=== PATIENT | male | born 1940 | race Caucasian/White ===

== ENCOUNTER → 2023-02-19 | Outpatient (CLI) | payer MEDICARE, BC | END | disposition home or self-care (01) | LOC: LABPAT 11:11 | PROVIDERS: ATTEND Orthopaedic Surgery | DX: Z01.812 Encounter for preprocedural laboratory examination (principal); M43.16 Spondylolisthesis, lumbar region; M47.817 Spondylosis without myelopathy or radiculopathy, lumbosacral region; Z22.322 Carrier or suspected carrier of Methicillin resistant Staphylococcus aureus | CPT/HCPCS: 36415; 86850; 86900; 86901; 87070 ==

== ENCOUNTER 2023-02-25 07:48 | Inpatient (IN) | payer MEDICARE, BC ==
[2023-02-20 14:51] VITALS: BMI 31.0
--- NOTE | 2023-02-25 06:56 | P.HPOR ---
History of Present Illness H&P Date: 02/19/23 .D:Date: 02/19/23 : 02:10pm .T:Title: *[facility]... COPY... Date of :[birth year] R14 Allergies: Age: 82 year Height: 6' Weight: 225 lbs BP:/ BMI: 30.52 kg/m2 Occupation: Retired VAS: 6 CHIEF COMPLAINT: Lumbar pain DOI: None DOS: None Duration of current treatment regiment:N/A HISTORY : Xrays New xrays taken in office Trauma or injury No Work-Related No Pain description Dull, aching Location Medial Activity Modification Yes Hand Dominance Right TREATMENTS COMPLETED: 6 weeks of PT completed? Month and Year of last PT date? No Physician directed home exercise completed? No Medications Yes; List: Celebrex, Pregabalin Alternative interventions Chiropractic: No Massage therapy: No R.I.C.E: yes Brace: No Injections Yes How many? 2 Did they help? No RFA: No SUBJECTIVE: Mr. Gray returns to the office for a pre-operative appointment preceding his L4-S1 MIS TLIF, right. Patient reports an aching lumbar pain at rest that becomes sharp with standing or walking that is chronic in nature. The patient denies experiencing any injury or trauma to indicate an exact onset of their symptoms. The pain persists around the medial aspect of the low. He denies any radicular symptoms. Mr. Gray's symptoms are exacerbated with standing and walking, and due to this they note that it is increasingly difficult to complete many of their daily tasks. The patient is having mild sleep disturbances as well due to their ongoing pain and associated symptoms. Regarding treatments, the patient has previously trialed epidural steroid injections and medication management with some relief. Patient denies trialing any other modalities at this time. For their symptoms, the patient has been taking Celebrex and Pregabalin. Otherwise the patient denies any f/c/sob/cp, no incision concerns, no bladder or bowel retention/incontinence, no perineal numbness/tingling, and ambulates independently. HPI: Mr. Gray returns to the office on 12/20/22 for a re-check on their low back pain. Patient continues to report a constant ache-like pain throughout the low back that is chronic in nature. The patient denies experiencing any injury or trauma to indicate an exact onset of their symptoms. The pain persists around the medial aspect of the low back with pain radiating into the right lower extremity. Mr. Gray's symptoms are exacerbated with standing and walking, and due to this they note that it is increasingly difficult to complete many of their daily tasks. The patient is having mild sleep disturbances as well due to their ongoing pain and associated symptoms. Regarding treatments, the patient has previously trialed epidural steroid injections and medication management with some relief. Patient denies trialing any other modalities at this time. For their symptoms, the patient has been taking Celebrex and Aspirin. Otherwise the patient denies any f/c/sob/cp, no incision concerns, no bladder or bowel retention/incontinence, no perineal numbness/tingling, and ambulates independently. Mr. Gray presents on 09/11/22 via phone call regarding his cervical spine MRI as well as his lumbar spine. Currently her cervical spine MRI is still uploaded into our system and there are no images available only the report is available. Upon talking with the patient he states his low back is bothering him more anyways. He complains of pain in his leg as well as low back he cannot stand set or do any activities for very long time before needing to rest. He is unable to walk distances due to the pain. Is unable stand for long periods of time due to the pain. He has tried injections in the past is done physical therapy he is at home exercises and [id number]-[id number] medications as well as prescription medications most recently Celebrex which is only helping minimally. His previous conservative management has failed and continues to have symptomatic pain. He denies any fevers chills shortness of breath or chest pain he denies any perineal numbness or tingling Mr. Gray returns to the office on 09/06/22 for a re-check on their low back pain and to review recent CT scan results of the lumbar spine. Patient states that he continues to experience a constant ache-like pain throughout the low back that is chronic in nature. The patient denies experiencing any injury or trauma to indicate an exact onset of their symptoms. The pain persists around the medial aspect of the low back with no radiating into the lower extremities. Mr. Pathaks symptoms are exacerbated with standing and walking, and due to this they note that it is increasingly difficult to complete many of their daily tasks. The patient is having mild sleep disturbances as well due to their ongoing pain and associated symptoms. Regarding treatments, the patient has previously trialed epidural steroid injections and medication management with some relief. Patient denies trialing any other modalities at this time. For their symptoms, the patient has been taking Celebrex and Pregabalin. The patient states that his pain mildly improved after taking Celebrex. Otherwise the patient denies any f/c/sob/cp, no incision concerns, no bladder or bowel retention/incontinence, no perineal numbness/tingling, and ambulates independently. Mr. Gray presents to the office on 08/09/22 for an evaluation of their lumbar pain. Patient reports a constant aching lumbar pain ongoing for 2-3 years with no known injury or trauma to indicate an exact onset of their symptoms. They state the pain is central over their lumbar and that it does not radiate to any other places or extremities. Although they do state that they have diabetic neuropathy in their legs. The patient reports they have had 2 WALE around 2020 which gave no help. Overall the patient has seen a progressive increase in symptoms since their onset. Mr. Gray symptoms are exacerbated with standing and walking, due to this they notes that it is increasingly difficult for Mr. Gray to complete many of their daily tasks. Patient is having mild sleep disturbances as well due to their ongoing pain and associated symptoms. Regard ing treatments, the patient has previously trialed WALE. Patient denies trialing any other modalities at this time. For their symptoms, the patient has been taking Aspirin and Pregabalin. Otherwise the patient denies any f/c/sob/cp, no incision concerns, no bladder or bowel retention/incontinence, no perineal numbness/tingling, and ambulates independently. The patients' past social, medical, family, surgical history, as well as review of systems, have been reviewed. Please refer to the Neurosurgery History and Physical form that has been scanned in to our electronic medical record system. 14 points review of systems completed and as stated in HPI, all other systems reviewed are negative. Social History: [id number]: never a smoker P3 Alcohol: none P3 Family History: Reviewed, see appropriate section of the chart for details. Past Medical History: Reviewed, see appropriate section of the chart for details. Current Medications: Rx: aspirin 81 mg chewable tablet Ref: 0 Rx: CeleBREX 200 mg capsule Ref: 0 Rx: cholecalciferol (vitamin D3) Ref: 0 Rx: DOMPERIDONE (MOTILIUM) , Ref: 0 Rx: finasteride 5 mg tablet Ref: 0 Rx: Fish OiL Ref: 0 Rx: Janumet 50 mg-1,000 mg tablet Ref: 0 Rx: Jardiance 25 mg tablet Ref: 0 Rx: lisinopriL 5 mg tablet Ref: 0 Rx: magnesium 400 mg (as magnesium oxide) tablet Ref: 0 Rx: metoprolol tartrate 25 mg tablet Ref: 0 Rx: metoprolol tartrate 25 mg tablet Ref: 0 Rx: omeprazole 20 mg capsule,delayed release Ref: 0 Rx: pregabalin 150 mg capsule Ref: 0 Rx: rosuvastatin 10 mg tablet Ref: 0 Rx: tamsulosin 0.4 mg capsule Ref: 0 Rx: Trulicity 1.5 mg/0.5 mL subcutaneous pen injector Ref: 0 PHYSICALEXAMINATION: General: Awake, alert, appropriate for age, in no acute distress. HEENT: No unusual neck masses around region of lateral neck triangle, thyroid, supraclavicular groove Extremities: Skin warm and dry without acute lesions, coloration, temperature, skin intact, no tenderness or erythema Integument: Hairy patches: ABSENT Dorsal skin dimples: ABSENT Cafe au lait spots: ABSENT Surgical incisions: None Palpation: Please see Pain drawing on Intake sheet for further detail. Midline spinal tenderness: No E6 Cervical Tenderness: No E6 Paralumbar tenderness: Yes E6 Parathoracic tenderness: No E6 Buttocks tenderness: No E6 Sacroiliac Tenderness:No Laterality: N/A POSTURAL and MUSCULO-SKELETAL EVALUATION: Coronal Balance: NEUTRAL Recumbent testing: Patient is able to lay flat on back Sagittal Balance: NEUTRAL Shoulder Profile: LEVEL Pelvic Girdle: LEVEL Neck ROM: RESTRICTED Lumbar ROM: RESTRICTED Shoulder ROM: Symmetrical Hip ROM: Symmetrical Knee ROM: Symmetrical Hands: Normal appearance, symmetrical Feet: Normal appearance, Symmetrical VASCULAR STATUS : LEFT RIGHT Wrist Pulses INTACT INTACT Pedal Pulses (Dors. pedis & post.tibialis) INTACT INTACT Color NORMAL NORMAL Edema Absent Absent NEUROLOGIC EXAMINATION: Mental Status:Awake and alert, fully oriented, with normal attention, concentration and memory, and fluent, appropriate speech. Cranial Nerves: I: Olfactory not tested. II: Visual acuity normal, no visual field deficit noted with confrontation. III,IV: Normal pupillary reflexes & intact extraocular movements without nystagmus. V,: Intact symmetrical facial sensation. VII: Intact symmetrical facial motor movement VIII: Hearing intact. IX,X: Intact gag, swallow, & normal voice. XI: Sternocleidomastoid, trapezius function intact. XII: Tongue midline with normal movements. L'hermitte's Sign: Negative / absent Spurling'Sign: Absent bilaterally. Cubital percussion test: Absent bilaterally. Pitts-Tinel sign - Carpal region: Absent bilaterally. Straight Leg Raising: Absent bilaterally. Crossed straight leg raise: negative MOTOR EXAM (0-5/5, N/T Muscle appearance:Left Calf Atrophy UPPER EXTREMITY RIGHT LEFT Shoulder Abduction 5/5 5/5 Biceps 5/5 5/5 Triceps 5/5 5/5 Wrist Extension 5/5 5/5 Hand Intrinsic 5/5 5/5 Electrical Calibrator 5/5 5/5 Hand and finger dexterity intact bilaterally? yes Disdiadochokinesis examination negative bilaterally? yes LOWER EXTREMITY RIGHT LEFT Hip Flexion 4/5 4/5 Knee Extension 4/5 4/5 Knee Flexion 4/5 4/5 Dorsiflexion 4/5 4/5 Plantarflexion 4/5 4/5 EHL 4/5 4/5 FHL 4/5 4/5 Toe heel walk / heel-toe walk intact while maintaining satisfactory balance? yes Squatting/straightening w/o assistance to a min of 60 degree knee flexion? yes Single leg stance: intact REFLEXES(0-4/2, NT)Upper ExtremityLower Extremity Right 2 2 Left 2 2 Pathological Reflexes RIGHT LEFT Pitts's Absent Absent Clonus Absent Absent Babinski Absent Absent Sensory system (0-4, N/T) Test type RU GEORGIE RL LL Joint-Position 2 2 2 2 Vibration 2 2 2 2 Pain & LT sense 2 2 2 2 Dermatomal Deficit: None None L5-S1 None Gait and Functional Evaluation: Ambulatory aids:Independent Romberg's test:Intact bilaterally Steady Gait RADIOGRAPHIC STUDIES: Xray Lumbar spine, multiview, Flexion/Extension with AP pelvis: spondylosis with spondylolisthesis noted. L5-S1 shows grade 1 spondylolisthesis which is mobile on flexion-extension films. There is reasonable disc height but increasing disc collapse at this level compared the other levels. L4-L5 shows some spondylosis as well. No acute fracture or dislocations otherwise noted. AP pelviscongruent level pelvis no fracture CT scan of the lumbar spine without contrast performed at [facility] on 08/28/2022: Images reviewed. There is grade 1 spondylolisthesis again of L5-S1 which is semi-reduced on the supine film. There appears to be part elongation and likely pars defect although it has filled in with sclerotic bone over time. This elongation is caused insufficiency of the L5-S1 facet joints. There is again sclerosis and nasal regions. Disc height is somewhat maintained although there is some vacuum phenomenon within the disc along with far lateral disc herniation which is noted. Similar findings of MRI. mri LUMBAR SPINE FROM OUTSIDE FACILITY DONE ON 05/23/2022:images reviewed. This demonstrates again grade 1 spondylolisthesis L5-S1 with disc bulging and large far lateral disc herniation L5-S1. There is likely pars defects here although there is no edema within the pars interarticularis. There is edema within the facet joints L5-S1 which are elongated and likely insufficient due to the slip. There is disc height loss at this level and disc dehydration. No acute fracture or other dislocation is noted. L4 5 shows mild spondylosis as well with ligamental hypertrophy. There is no high-grade central stenosis over there is bilateral foraminal stenosis at both levels. This is moderate. No acute fractures noted. IMPRESSION: It was my pleasure to have seen and examined Bebeto. I reviewed the patient's clinical syndrome, physical findings, and imaging studies during the appointment today. It is my impression that the patient has a diagnosis of. 1. L5-S1 grade 1 spondylolisthesis, unstable 2.L4-S1 spondylosis 3. Right lower extremity weakness and radiculopathy 4. Low back pain I outlined the natural course history without intervention and various interventional options. PLAN: Based on my findings I suggest the following course of action: - I discussed treatment options with the patient, including operative and non- operative options, and they have elected to proceed with the following surgical procedure: lumbar L4-S1 MIS Transforaminal Lumbar Interbody Fusion The indications, risks, benefits, and alternatives to surgery were discussed with the patient at length. Specifically (but not limited to) the risks of infection, stiffness, recurrence of symptoms, need for revision surgery, local numbness, neurovascular injury, and blood clots were discussed. The patient's questions were answered.The patient would like to consider surgical options and will call the office if /when they decide to proceed. -Patient referred to Dr. Meza for pulmonology clearance -Ambulate daily -Take medications as directed -Ice and rest for pain and swelling control. Spine Surgery Risk Review Mr. Gray is presenting for evaluation of low back pain. It was my pleasure to have seen and examined Mr. Gray. In our visit today we have had a chance to go over subjective complaints, physical examination findings and treatments including the natural course history without intervention and various interventional options. The patients imaging demonstrates: Xray Lumbar spine, multiview, Flexion/Extension with AP pelvis: spondylosis with spondylolisthesis noted. L5-S1 shows grade 1 spondylolisthesis which is mobile on flexion-extension films. There is reasonable disc height but increasing disc collapse at this level compared the other levels. L4-L5 shows some spondylosis as well. No acute fracture or dislocations otherwise noted. AP pelviscongruent level pelvis no fracture CT scan of the lumbar spine without contrast performed at [facility] on 08/28/2022: Images reviewed. There is grade 1 spondylolisthesis again of L5-S1 which is semi-reduced on the supine film. There appears to be part elongation and likely pars defect although it has filled in with sclerotic bone over time. This elongation is caused insufficiency of the L5-S1 facet joints. There is again sclerosis and nasal regions. Disc height is somewhat maintained although there is some vacuum phenomenon within the disc along with far lateral disc herniation which is noted. Similar findings of MRI. mri LUMBAR SPINE FROM OUTSIDE FACILITY DONE ON 05/23/2022:images reviewed. This demonstrates again grade 1 spondylolisthesis L5-S1 with disc bulging and large far lateral disc herniation L5-S1. There is likely pars defects here although there is no edema within the pars interarticularis. There is edema within the facet joints L5-S1 which are elongated and likely insufficient due to the slip. There is disc height loss at this level and disc dehydration. No acute fracture or other dislocation is noted. L4 5 shows mild spondylosis as well with ligamental hypertrophy. There is no high-grade central stenosis over there is bilateral foraminal stenosis at both levels. This is moderate. No acute fractures noted. On physical exam, Mr. Gray demonstrates: Patient continues to report a constant ache-like pain throughout the low back that is chronic in nature. The patient denies experiencing any injury or trauma to indicate an exact onset of their symptoms. The pain persists around the medial aspect of the low back with pain radiating into the right lower extremity. Mr. Gray's symptoms are exacerbated with standing and walking, and due to this they note that it is increasingly difficult to complete many of their daily tasks. The patient is having mild sleep disturbances as well due to their ongoing pain and associated symptoms. I have explained to the patient that as their condition progresses it will cause further neurological deficits and eventual paralysis. Based on the patients imaging, physical exam, and the rapid progression and disabling nature of their symptoms, at this time I recommend surgery in the form of a: lumbar L4-S1 MIS Transforaminal Lumbar Interbody Fusion I discussed the risk and benefits of this procedure at length with Mr. Gray. The patient agreed to considered pursuing the procedure abovementioned. Prior to surgery, she should follow up with her PCP (Cardio, ID, IM etc) for clearance. Questions were invited and answered, and the patient wishes to proceed as outlined below. Currently, I am recommendin.lumbar L4-S1 MIS Transforaminal Lumbar Interbody Fusion 2.Follow up with PCP for surgical clearance 3.Review of surgical risks and benefits as well as an educational packet on the proposed surgical procedure. Risks: All surgical procedures come with inherent risks, including those related to positioning, anesthesia, intraoperative findings, and postoperative complications. It is important to understand that surgery does not come with any guarantee of a successful outcome as complications and adverse events are always possible. The patient was given a handout in office today discussing the surgical procedure and risks associated with the intervention, both of which were discussed with the patient. These risks include but are not limited to the following: * Experiencing same, different or even worse symptoms in back, neck, arms, or legs compared to before surgery. Requiring further surgery or other forms of treatment presently or at some time in the future at same or other levels of the intended spine surgery. On an extreme but fortunately relatively rare basis severe complication such as blindness, stroke, heart attack, temporary and/or permanent nerve injury, paralysis, coma, or may occur, sometimes without known explanation. Surgical complications may include but are not limited to risk of infe ction, fluid accumulation in the surgical dissection site, including a seroma or hematoma, that requires additional surgery, wound drainage, bleeding, new numbness or weakness, vision changes/loss, spinal fluid leakage, non-healing and/or infected incision, headaches, difficulty or inability to swallow, hoarseness, hemopneumothorax, pneumothorax, impotence, retrograde ejaculation, vaginal dryness; injury to nerves, spinal cord, blood vessels, lymphatics or other vital organs (i.e., bowel injury, injury to the great vessels); heterotopic bone formation; complications related to the hardware such as screws, rods, cages including misplaced hardware, device failure, instrumentation at the wrong spine level, hardware fracture/breakage, or hardware loosening; vertebral failure of the spinal column above or below the newly placed hardware; retained surgical instrumentations or devices and the need for further surgery. * Medical risks of the planned spine surgery include but are not limited to generalized Infections to the whole body or local areas outside of the surgical site (sepsis), heart attack, bleeding, anaphylaxis, meningitis, seizure, epilepsy, hearing loss, burn soria, laceration of the head or other areas of the body, bruising, hypersensitivity of the skin, bladder over distension; allergic reaction; shoulder injury related to positioning; fat, blood and air clots to other areas of the body like heart, lungs, brain; failure of internal organs such as lungs, kidneys, liver and excessive bleeding. If blood transfusions are necessary, note that transfusions may caus e intolerance reactions such as anaphylaxis or other complex reactions. Despite best efforts, the results of spine surgery might not heal in terms of bone, soft tissues such as skin, fascia, ligaments, and joints. Additionally, in order to achieve best possible results, spine surgery may be carried out beyond the initially planned levels and involve decompression, fusion including insertion of hardware at levels other than the original intended area of surgical interest change some portions of the procedure in order to ensure the best possible outcomes. With spine surgery and spinal fusion, there are different off label uses of instrumentation (devices, implants and hardware) as well as biological substances (bone morphogenic proteins, demineralized bone matrix) as well as using extra bone from allograft sources (i.e. cadaver bone) or autograft (iliac crest bone, ribs, or the spine itself). The patient has been given information about these practices and their inherent risks and benefits. [facility] is an educational center that serves as a training facility for neurosurgical and orthopedic REHABILITATION ATTENDANT and Nursing students. Physician assistants are medically trained surgical providers who function in the outpatient, inpatient, and operating room setting under the direct supervision of the attending surgeon. [facility] has multiple operating rooms with single and overlapping rooms running daily. They currently function under the required guidelines as produced by the [facility] [employer] Committee with regards to the overlapping rooms and will continue to comply with changes to this policy as they occur. The requirements include and are complied with as follows: (1) the critical portions of the overlapping rooms will not occur at the same time, (2) the attending physician will be physically present during the critical portions of the procedure and immediately available during the entire case, and (3) a back-up attending is designated should the primary attending not be immediately available. The patient has had a chance to review all the listed information, has been given print outs detailing this information, and has had all his/her questions answered to their satisfaction. It was my pleasure to have seen and examined Mr. Gray. In our visit today we have had a chance to go over my understanding of our patient's current condition, the natural course history without intervention and various interventional options. Questions were invited and answered, and the patient wishes to proceed as outlined above. I have seen and examined the patient for 25 minutes and we have spent more than 50% of the time in repeat and detailed counseling about the patient's condition, its natural course history with out and as much as can be predicted with surgery and re-review of various surgical treatment options. In conclusion, Mr. Gray requested we proceed with the above suggested surgery and are willing to accept risks and limitations of the suggested surgery as nature of the disease process and our best attempts at treatment for the condition. Thank you again for allowing us to be part of your patient's care. Please don't hesitate to contact me if you have any further questions. Signed and authenticated by: stacey Summers DO [facility] Complex and Minimally Invasive Spine Surgery [address] [facility], [address] [address] Follow- up: DEL Post procedure 1month 6wks 3 months 6 months 1 year Patient Education: (Informational booklet, instructions, etc) given at today's appointment: DEL Yes .ED:Patient Education: Y Medications Reviewed: YES In our visit today Mr. Gray and I have had a chance to go over my understanding of the patient's current condition, the natural course history without intervention and various interventional options. Questions were invited and answered, and the patient wishes to proceed as outlined above. I will be sure to keep you updated afterMrFrancesca Gray returns here for further follow-up. Thank you again for your referral. Please do not hesitate to contact me if you have any further questions. Signed and authenticated by: ADALGISA Summers DO [facility] [address] [address] This message is confidential, intended only for the named recipient(s) and may contain information that is privileged or exempt from disclosure under applicable law. If you are not the intended recipient(s), you are notified that the dissemination, distribution or copying of this information is strictly prohibited. If you received this message in error, please notify the sender then delete this message. Patient verbalizes understanding of the information discussed. The above note was initiated by Erwin Mays, physician recording assistant plant controller for Dr. Keven Summers. This note has been reviewed by Dr. Summers, who has made his personal changes and impressions for this document. CC: Bob Auguste M.D. Past Medical History Past Medical History: Diabetes Mellitus, GERD/Reflux, Hearing Disorder / Deafness, Hyperlipidemia, Hypertension, Neurologic Disorder, Osteoarthritis (OA), Prostate Disorder, Sleep Apnea/CPAP/BIPAP Additional Past Medical History / Comment(s): CPAP use. "Low platelets, usuallly runs from 129-149, has been like this for years, has been checked out throughly and there's nothing to be concerned about". Neuropathy. Enlarged prostate. Bilateral hearing aid use, can hear out of right ear best. History of Any Multi-Drug Resistant Organisms: None Reported Past Surgical History: Coronary Bypass/CABG Additional Past Surgical History / Comment(s): CABG 5 vessel 1992 or 1993, anal fissure repair. Past Anesthesia/Blood Transfusion Reactions: No Reported Reaction Past Psychological History: No Psychological Hx Reported Smoking Status: Former smoker Past Alcohol Use History: None Reported Additional Past Alcohol Use History / Comment(s): Quit smoking in 2002. Past Drug Use History: None Reported - Past Family History Father Family Medical History: Cancer Mother Family Medical History: Cancer Medications and Allergies Home Medications Medication Instructions Recorded Confirmed Type Aspirin [Adult Low Dose Aspirin EC] 81 mg PO W/SUPPER 02/20/23 02/20/23 History Celecoxib 200 mg PO DIRECTED 02/20/23 02/20/23 History Domperidone 10 mg PO TID 02/20/23 02/20/23 History Empagliflozin [Jardiance] 25 mg PO QAM 02/20/23 02/20/23 History Finasteride [Proscar] 5 mg PO HS 02/20/23 02/20/23 History Loratadine 10 mg PO HS 02/20/23 02/20/23 History Magnesium Oxide(Unknown Dose) 1 tab PO W/SUPPER 02/20/23 02/20/23 History Metoprolol Tartrate 25 mg PO BID 02/20/23 02/20/23 History Montelukast [Singulair] 10 mg PO HS 02/20/23 02/20/23 History Ventura-3/Dha/Epa/Fish Oil [Fish Oil 1 each PO BID 02/20/23 02/20/23 History 1,000 mg Softgel] Omeprazole [PriLOSEC] 20 mg PO HS 02/20/23 02/20/23 History Pregabalin 150 mg PO BID 02/20/23 02/20/23 History Rosuvastatin [Crestor] 10 mg PO HS 02/20/23 02/20/23 History Semaglutide [Ozempic] 0.25 mg SQ MERCEDES 02/20/23 02/20/23 History Tamsulosin [Flomax] 0.4 mg PO QAM 02/20/23 02/20/23 History Vitamin B-12 (Unknown Dose) 1 tab PO DAILY 02/20/23 02/20/23 History Vitamin D (Unknown Dose) 1 tab PO BID 02/20/23 02/20/23 History lisinopriL [Zestril] 5 mg PO W/SUPPER 02/20/23 02/20/23 History sitaGLIPtin PHOS/metFORMIN HCL 1 each PO W/SUPPER 02/20/23 02/20/23 History [Janumet 50-1,000 mg Tablet] Allergies Allergy/AdvReac Type Severity Reaction Status Date / Time No Known Allergies Allergy Verified 02/20/23 14:11 Physical Examination Osteopathic Statement: *. No significant issues noted on an osteopathic structural exam other than those noted in the History and Physical/Consult.
[~2023-02-25 07:48] MED LIST: ACETAMINOPHEN TAB 500 MG TAB PO PRN; DEXAMETHASONE SOD PHOSPHATE 4 MG/ML 1 ML VIAL IV ONE; GABAPENTIN 300 MG CAP PO PRN; LIDOCAINE 1% (10MG/ML) FOR IV START INTRADERMA PRN; MIDAZOLAM 2 MG/2 ML VIAL IV PRN; ONDANSETRON 4 MG/2 ML VIAL IVP ONE; ONDANSETRON 4 MG/2 ML VIAL IVP PRN; TRANEXAMIC 1,000 MG/100ML-NACL 1,000 MG in SALINE 1 100ML.BAG IVPB PRN
[2023-02-25 08:41] LABS: Glucose,Whole Blood 138 mg/dL (70-110)
[2023-02-25] MEDS: LACTATED RINGERS 1,000 ML IV SCH (08:41)
[2023-02-25 08:52] LABS: Basophils % (A) 0 %; Eosinophils # (A) 0.2 k/uL (0-0.7); Eosinophils % (A) 3 %; HCT 45.8 % (39.0-53.0); HGB 14.5 gm/dL (13.0-17.5); Lymphocytes # (A) 2.3 k/uL (1.0-4.8); Lymphocytes % (A) 30 %; MCH 28.1 pg (25.0-35.0); MCHC 31.7 g/dL (31.0-37.0); MCV 88.7 fL (80.0-100.0); Monocytes # (A) 0.3 k/uL (0-1.0); Monocytes % (A) 4 %; Neutrophils # (A) 4.6 k/uL (1.3-7.7); Neutrophils % (A) 61 %; Platelet Count 140 k/uL (150-450); RBC 5.17 m/uL (4.30-5.90); RDW 13.5 % (11.5-15.5); WBC 7.5 k/uL (3.8-10.6)
[2023-02-25 09:16] LABS: ALT 29 U/L (4-49); AST 25 U/L (17-59); African American GFR (CKD) 86 (>60 ml/min/1.73 sqM); Albumin 4.3 g/dL (3.5-5.0); Alkaline Phosphatase 63 U/L (38-126); Anion Gap 9 mmol/L; Blood Urea Nitrogen 21 mg/dL (9-20); Carbon Dioxide 30 mmol/L (22-30); Chloride 102 mmol/L (98-107); Glucose 148 mg/dL (74-99); Non-African American GFR(CKD) 74 (>60 ml/min/1.73 sqM); Potassium 4.3 mmol/L (3.5-5.1); Sodium 141 mmol/L (137-145); Total Protein 6.9 g/dL (6.3-8.2)
[2023-02-25 09:22] LABS: INR 1.1 (<1.2); Partial Thromboplastin Time 24.9 sec (22.0-30.0); Prothrombin Time 11.6 sec (10.0-12.5)
[2023-02-25] MEDS ORDERED: ePHEDrine 50 MG/ML 1 ML VIAL ONE (10:40)
[2023-02-25] MEDS ORDERED: fentaNYL (PF) 50 MCG/ML 2 ML AMP ONE (10:40)
[2023-02-25] MEDS ORDERED: MIDAZOLAM 2 MG/2 ML VIAL ONE (10:40)
[2023-02-25] MEDS ORDERED: ROCURONIUM 10 MG/ML (5 ML VIAL) IV ONE (10:40)
[2023-02-25] MEDS ORDERED: GLYCOPYRROLATE 0.2 MG/ML 2 ML VIAL ONE (10:40)
[2023-02-25] MEDS ORDERED: PHENYLEPHRINE 10 MG/ML 5 ML VIAL ONE (10:40)
[2023-02-25] MEDS ORDERED: PROPOFOL 10 MG/ML 20 ML VIAL IV ONE (10:40)
[2023-02-25] MEDS ORDERED: WATER FOR INJECTION, STERILE 10 ML VIAL IV ONE (10:40)
[2023-02-25] MEDS ORDERED: NEOSTIGMINE 1 MG/ML 10 ML VIAL ONE (10:40)
[2023-02-25] MEDS ORDERED: LIDOCAINE 1% INJ 10MG/ML (20 ML MDV) ONE (10:40)
[2023-02-25] MEDS ORDERED: TRANEXAMIC 1,000 MG/100ML-NACL PREMIX BAG ONE (10:40)
[2023-02-25] MEDS ORDERED: SUCCINYLCHOLINE CHLORIDE 200 MG/10 ML VIAL IV ONE (10:40)
[2023-02-25] MEDS ORDERED: THROMBIN (BOVINE) 5,000 UNIT VIAL TOPICAL ONE (11:41)
[2023-02-25] MEDS ORDERED: GELATIN SPONGE,ABSORB (LARGE) 1 EACH SPONGE TOPICAL ONE (11:41)
[2023-02-25] MEDS ORDERED: LIDOCAINE 2%-EPI 1:100,000 20 ML VIAL SQ ONE (13:24)
[2023-02-25] MEDS ORDERED: BUPIVACAINE (PF) 0.5% 30 ML VIAL SQ ONE (13:24)
--- NOTE | 2023-02-25 13:42 | XR ---
Fluoroscopy History: LUMBAR FUSION LUMBAR FUSION FL TIME 1 MIN 29 SEC DAP [phone]
[2023-02-25] MEDS ORDERED: ONDANSETRON 4 MG/2 ML VIAL IVP PRN (13:54)
[2023-02-25] MEDS ORDERED: HYDROcodone/APAP 5-325MG 1 EACH TAB PO PRN (13:54)
[2023-02-25] MEDS ORDERED: NA PHOS,M-B/NA PHOS,DI-BA 133 ML ENEMA RECTAL PRN (13:54)
[2023-02-25] MEDS ORDERED: bisacodyL 10 MG SUPP RECTAL PRN (13:54)
[2023-02-25 13:57] LABS: Glucose,Whole Blood 167 mg/dL (70-110)
[2023-02-25] MEDS: HYDROmorphone 0.5 MG/0.5 ML SYRINGE IVP PRN ×4 (13:59→20:32)
[2023-02-25] MEDS: ACETAMINOPHEN TAB 325 MG TAB PO SCH ×2 (17:44→23:40)
[2023-02-25] MEDS: CYCLOBENZAPRINE 5 MG TAB PO PRN (17:45)
[2023-02-25] MEDS: HYDROcodone/APAP 7.5-325MG 1 EACH TAB PO PRN (17:45)
--- NOTE | 2023-02-25 18:18 | P.OP ---
Date of Procedure: 02/25/23 Preoperative Diagnosis: 1. L5-S1 GRADE I-II SPONDYLOLISTHESIS 2. L4-S1 SPONDYLOSIS WITH STENOSIS 3. LOW BACK PAIN 4. LE RADICULOPATHY WITH WEAKNESS Postoperative Diagnosis: 1. L5-S1 GRADE I-II SPONDYLOLISTHESIS 2. L4-S1 SPONDYLOSIS WITH STENOSIS 3. LOW BACK PAIN 4. LE RADICULOPATHY WITH WEAKNESS Procedure(s) Performed: 1. L5-S1 posterolateral and interbody fusion (38143) 2. L5-S1 laminoforaminotomy/decompressive laminectomy (81624) 3. L5-S1 instrumentation (64438) 4. Insertion of biomechanical device L5-S1 (interbody cage) (22886) 5. Quantros Navigation for screw placement (50695) Implants: -ASHLEY EVEREST SCREWS/PARKER -GLOBUS SABLE CAGE -MAGNATOS, ARTHROCELL, ALLOCELL, VENTRIS, AUTOGRAFT Anesthesia: GETA Surgeon: Keven Summers Dross Skimmer #1: Mariano Childress (Was present and assisted with all aspects of the case from position to closure. ) Estimated Blood Loss (ml): 50 IV fluids (ml): 1,500 Urine output (ml): 450 Pathology: none sent Condition: stable Disposition: PACU Indications for Procedure: Mr. Gray is presenting for evaluation of low back pain. It was my pleasure to have seen and examined Mr. Gray. In our visit today we have had a chance to go over subjective complaints, physical examination findings and treatments including the natural course history without intervention and various interventional options. The patients imaging demonstrates: Xray Lumbar spine, multiview, Flexion/Extension with AP pelvis: spondylosis with spondylolisthesis noted. L5-S1 shows grade 1 spondylolisthesis which is mobile on flexion-extension films. There is reasonable disc height but increasing disc collapse at this level compared the other levels. L4-L5 shows some spondylosis as well. No acute fracture or dislocations otherwise noted. AP pelviscongruent level pelvis no fracture CT scan of the lumbar spine without contrast performed at [facility] on 08/28/2022: Images reviewed. There is grade 1 spondylolisthesis again of L5-S1 which is semi-reduced on the supine film. There appears to be part elongation and likely pars defect although it has filled in with sclerotic bone over time. This elongation is caused insufficiency of the L5-S1 facet joints. There is again sclerosis and nasal regions. Disc height is somewhat maintained although there is some vacuum phenomenon within the disc along with far lateral disc herniation which is noted. Similar findings of MRI. mri LUMBAR SPINE FROM OUTSIDE FACILITY DONE ON 05/23/2022:images reviewed. This demonstrates again grade 1 spondylolisthesis L5-S1 with disc bulging and large far lateral disc herniation L5-S1. There is likely pars defects here although there is no edema within the pars interarticularis. There is edema within the facet joints L5-S1 which are elongated and likely insufficient due to the slip. There is disc height loss at this level and disc dehydration. No acute fracture or other dislocation is noted. L4 5 shows mild spondylosis as well with ligamental hypertrophy. There is no high-grade central stenosis over there is bilateral foraminal stenosis at both levels. This is moderate. No acute fractures noted. On physical exam, Mr. Gray demonstrates: Patient continues to report a constant ache-like pain throughout the low back that is chronic in nature. The patient denies experiencing any injury or trauma to indicate an exact onset of their symptoms. The pain persists around the medial aspect of the low back with pain radiating into the right lower extremity. Mr. Gray's symptoms are exacerbated with standing and walking, and due to this they note that it is increasingly difficult to complete many of their daily tasks. The patient is having mild sleep disturbances as well due to their ongoing pain and associated symptoms. I have explained to the patient that as their condition progresses it will cause further neurological deficits and eventual paralysis. Based on the patients imaging, physical exam, and the rapid progression and disabling nature of their symptoms, at this time I recommend surgery in the form of a: lumbar L4-S1 MIS Transforaminal Lumbar Interbody Fusion I discussed the risk and benefits of this procedure at length with Mr. Gray. The patient agreed to considered pursuing the procedure abovementioned. Prior to surgery, she should follow up with her PCP (Cardio, ID, IM etc) for clearance. Questions were invited and answered, and the patient wishes to proceed as outlined below. Currently, I am recommendin.L5-S1 possible lumbar L4-S1 MIS Transforaminal Lumbar Interbody Fusion Description of Procedure: L5-S1 MIS TLIF JEANE (R) The patient was seen and examined in the preoperative area. All preoperative protocols were followed. Informed consent was obtained, risks and benefits of the procedure were discussed at length. Risks including bleeding infection damage to the surrounding tissue and risk of reoperation were discussed with the patient. Risk of anesthesia up to and including was discussed with the patient. These are outlined in the risk review. They were willing to accept these risks and all the risks of surgery. The patient was given a weight-based dose of antibiotics in the form of 2 g Ancef. The patient was seen and evaluated by the anesthesia team who deemed them fit for surgery. The site was marked, the patient was willing to proceed with the procedure. The patient was transferred to the operative suite by the Department of anesthesia. They were then drifted off to sleep by the department anesthesia and GETA was performed. The patient tolerated this well. Beltran catheter was placed by nursing staff, a-traumatically. Once confirmation of lines and ventilation the patient was transferred to a prone Sagar table very carefully. All bony prominences including wrists, elbows, axilla, chest, hips, and thighs, and feet were padded very well. Special attention was paid to the genitalia, and these were padded accordingly. SCDs were placed on bilateral lower extremities and were connected. Arms were well padded and placed on arm boards up and out in the 90/90 position. Once in position, again we confirmed good ventilation capabilities and that lines were running appropriately. The patients Lumbar spine was then exposed. 1010s were placed outlining the incision site. Standard alcohol was used to clean the incision site and allowed to dry. C-arm was used to needle localize the pedicles at L5-S1 and bio-glen the patient and confirm level for incision which was marked with a skin marker. Operative briefing was performed with all teams and everyone in agreement to proceed. The patient was then prepped and draped in a normal sterile fashion. Timeout was then performed, and all parties agreed with the procedure to be performed. Skin nicks were made over the PSIS on the right side and pins placed for the Quantros Navigation tracker. This was secured and then a 3D Zhiem spin was registered. Once registered it was tested and confirmed to be accurate. We then targeted pedicles b/l at L5 and S1 using navigated Jamshidi and drill guide. Wires were then placed in their void and confirmed to be in good position on AP and Lateral. Contralateral right side screws were then placed over wires and tested and they all tested above 20 mA. Attention was then turned to interbody fusion at L5-S1. Tubular retractor system was placed at the interspace of L5-S1 using biplanar c arm. Once in position and dilated up to 26mm tube it was locked to the bed and confirmed in good position. Microscope was then brought in for visualization. Limited myomectomy was performed and laminectomy, complete facetectomy and foraminotomy performed at L5-S1 using high speed carolyn and Kerrison rongure. The ligamentum was removed and dural sac decompressed. Exiting and traversing roots visualized and decompressed. Neural elements were then protected, and disc space accessed with an osteotome. Sequential shaving then done under lateral imaging and complete discectomy performed using tony, pituitary and curette. Once good bleeding endplates accomplished and good height evangelical with trials, a combination of autograft, allograft and synthetic placed anterior in the disc space. The cage was then selected and impacted into place under lateral imaging. The cage was then expanded restoring height, lordosis and alignment. The cage was backfilled with bone graft through a funnel. The pack changer removed and area inspected. Good cage placement, stable cage and no injuries. Area was irrigated copiously, and meticulous hemostasis achieved. The tubular retractor was then removed under direct visualization. Screws were then selected and placed over the previously placed wires on the ipsilateral side. This was done in the fashion described above. Screws were then tested, and all tested above 20 mA. Shells were then placed on the tabs. Parker length was then measured, and rods selected. They were then placed through the MIS tabs, subfascial. These were then locked into place with set screws and final tightened. Parker holders removed and images taken showing good placement of rods good lordosis and evangelical of height. Tabs were broken off. Wounds were then copiously irrigated with NSS. Carolyn used for TP decortication and mixture of MagnatOs, allograft and autograft packed posterolateral. Facia was then closed with 0 Vircyl. Deep subq closed with 0 Vicryl. Superficial subq closed with 2-0 Vicryl and skin with fabio. Wound edges approximated very well. Wound was then cleaned with alcohol and dried. Wounds dressed in Optifoam dressings. The patient was then transferred off the table back to their hospital bed a- traumatically. They were extubated by the department of anesthesia. They were then transferred to PACU in stable condition having tolerated the procedure with no complications.
[2023-02-25] MEDS ORDERED: IPRATROPIUM-ALBUTEROL 3 ML NEB INHALATION PRN (18:33)
[2023-02-25] MEDS: ATORVASTATIN 20 MG TAB PO SCH (20:32)
[2023-02-25] MEDS: FINASTERIDE 5 MG TAB PO SCH (20:32)
[2023-02-25] MEDS: METOPROLOL TARTRATE 25 MG TAB PO SCH (20:32)
[2023-02-25] MEDS: PREGABALIN 75 MG CAP PO SCH (20:32)
[2023-02-25] MEDS: LORATADINE 10 MG TAB PO SCH (20:32)
[2023-02-25] MEDS: CHOLECALCIFEROL 25 MCG (1000 IU) TABLET PO SCH (20:32)
[2023-02-25] MEDS: MONTELUKAST 10 MG TAB PO SCH (20:32)
[2023-02-25] MEDS: PANTOPRAZOLE 40 MG TABLET PO SCH (20:32)
[2023-02-25] MEDS ORDERED: PREGABALIN 75 MG CAP PO SCH (21:00)
[2023-02-25] MEDS ORDERED: NON FORMULARY DRUG (Omega-3/Dha/Epa/Fish Oil [Fish Oil 1,000 Mg Softgel] 1 EACH Capsule) PO SCH (21:00)
[2023-02-25 21:08] LABS: Glucose,Whole Blood 131 mg/dL (70-110)
--- NOTE | 2023-02-26 01:58 | CT ---
EXAM: CT Lumbar Spine Without Intravenous Contrast CLINICAL HISTORY: ITS.REASON CT Reason: s/p lumbar fusion TECHNIQUE: Axial computed tomography images of the lumbar spine without intravenous contrast. CTDI is 32 mGy and DLP is 1226.4 mGy-cm. This CT exam was performed using one or more of the following dose reduction techniques: automated exposure control, adjustment of the mA and/or kV according to patient size, and/or use of iterative reconstruction technique. COMPARISON: No relevant prior studies available. FINDINGS: Vertebrae: No acute fracture. No subluxation. Status post L5-S1 fusion. Discs/spinal canal/neural foramina: Mild degenerative changes. Multiple foci of air in the epidural space throughout the mid to lower lumbar spine. There is a small hemorrhage measuring 1 cm at L5-S1 likely in the epidural space. Soft tissues: Unremarkable. IMPRESSION: Status post L5-S1 fusion. Multiple foci of air in the epidural space throughout the mid to lower lumbar spine. There is a small hemorrhage measuring 1 cm at L5-S1 likely in the epidural space. Recommend MRI of the lumbar spine for better characterization.
--- NOTE | 2023-02-26 04:16 | CONS ---
CONSULTATION HISTORY OF PRESENT ILLNESS: An 82-year-old white male status post cervical surgery, status post surgical repair, L4- S1 MIS TLIF right, insulin-dependent diabetes mellitus on Accu-Chek protocol. SOCIAL HISTORY: Smoking 1 pack a day. Alcohol negative. REVIEW OF SYSTEMS: 14-point review of systems otherwise negative. MEDICATIONS: Include, 1. Aspirin 81 mg daily. 2. Celebrex 200 daily. 3. Vitamin D3 daily. 4. Domperidone daily. 5. Finasteride 5 mg daily. 6. Janumet t.i.d. 7. Jardiance 25 mg daily. 8. Lisinopril 5 mg daily. 9. Magnesium oxide 400 mg daily. 10.Lopressor 25 b.i.d. 11.Omeprazole 20 mg daily. 12.Pregabalin 150 mg b.i.d. 13.Simvastatin 10 mg daily. 14.Tamsulosin 0.4 mg daily. 15.Trulicity 1.5 mg weekly. PHYSICAL EXAMINATION: CARDIOVASCULAR: S1, S2. LUNGS: Transmitted upper airway sounds. Scattered wheezes x4. HEMATOLOGY: Negative. EXTREMITIES: Homans, 2+ pretibial edema, stasis changes. PSYCHIATRIC: Fair mood and affect. NEUROLOGIC: Alert and oriented x3. Strength is 4/5 x4. ASSESSMENT AND PLAN: Status post lumbar sacral surgery. Accu-Chek protocol. Breathing treatments. Continue home medications for prostate BPH. PROGNOSIS: Guarded. Please see further orders. MMODL / IJN: [id number] /
[2023-02-26 06:00] LABS: Glucose,Whole Blood 104 mg/dL (70-110)
[2023-02-26] MEDS: ACETAMINOPHEN TAB 325 MG TAB PO SCH ×4 (06:01→23:37)
[2023-02-26] MEDS: CYCLOBENZAPRINE 5 MG TAB PO PRN ×2 (06:02→18:54)
[2023-02-26] MEDS: CYANOCOBALAMIN 500 MCG TAB PO SCH (08:49)
[2023-02-26] MEDS: METOPROLOL TARTRATE 25 MG TAB PO SCH ×2 (08:49→21:27)
[2023-02-26] MEDS: PREGABALIN 75 MG CAP PO SCH ×2 (08:49→21:27)
[2023-02-26] MEDS: TAMSULOSIN 0.4 MG CAP.ER.24H PO SCH (08:49)
[2023-02-26] MEDS: SENNOSIDES-DOCUSATE SODIUM 1 EACH TAB PO SCH (08:49)
[2023-02-26] MEDS: CHOLECALCIFEROL 25 MCG (1000 IU) TABLET PO SCH ×2 (08:49→21:27)
--- NOTE | 2023-02-26 11:00 | P.PN ---
Subjective Progress Note Date: 02/26/23 Principal diagnosis: Status post MIS L5-S1 TLIF Patient was examined today at bedside, he is resting comfortably in his hospital bed. Patient has not been out of bed yet. Urinary catheter remains in place. Patient notes discomfort in the low back with movement. He denies any headaches, lightheadedness, chest pain or shortness of breath. Patient notes no worsening paresthesias to the lower extremities at this time. He denies any loss of bowel function at this time. He denies any genital or peroneal numbness or tingling Objective - Vital Signs Vital signs: Vital Signs Temp 99.0 F 02/26/23 07:11 Pulse 64 02/26/23 07:11 Resp 16 02/26/23 07:11 BP 115/69 02/26/23 07:11 Pulse Ox 95 02/26/23 08:37 FiO2 Intake & Output 02/25/23 02/26/23 02/26/23 18:59 06:59 18:59 Intake Total 2049 Output Total 980 Balance 1070 Weight 103 kg Intake: IV 2049 Output: Urine 930 Estimated Blood Loss 50 Other: Voiding Method Indwelling Catheter Indwelling Catheter - Exam Gen: AOx3, NAD VSS stable at this time Integument: Post op bandages are in good position and condition, no active drainage Palpation: Mild tenderness with palpation noted to the lower lumbar spine ROM: Full range of motion in all major muscle groups of bilateral upper and lower extremities, no focal deficits appreciated Sensory Exam: Senory exam to light touch is intact C5-T1 Senosry exam to light touch is intact L2-S1 Motor: 5/5 strength appreciated in the bilateral upper extremities and shoulder elevation, shoulder abduction, elbow extension, elbow flexion, wrist extension, wrist flexion, obstetrician gynecologist 4/5 strength appreciated in the bilateral lower extremities with hip flexion, knee extension, knee flexion, plantar flexion, dorsiflexion, EHL, FHL Reflexes: 2/4 in all UE and LE Negative Eliot's, Babinski, clonus bilaterally Special Test: Negative straight leg raise bilaterally - Labs CBC & Chem 7: 02/25/23 08:38 02/25/23 08:38 Labs: Abnormal Lab Results - Last 24 Hours (Table) 02/25/23 02/25/23 Range/Units 13:56 21:07 POC Glucose (mg/dL) 167 H 131 H (70-110) mg/dL Assessment and Plan Assessment: Postoperative day #1 status post MIS L5S1 transforaminal lumbar interbody fusion Plan: Pain control, continue use of Malone, Lyrica has also been restarted. Continue with scheduled stool softeners Urinary catheter be discontinued today, continue Flomax daily. Monitor for urinary retention DVT prophylaxis, we'll begin heparin 5000 units every 12 later today Wound care, continue to monitor surgical dressings Weight-bear as tolerated, recommend use of walker at all times. No bending, lifting or twisting PT/OT Encourage incentive spirometer Medical recommendations appreciated Discharge planning: Hopeful discharge home with home health care in the next 24- 48 hours Time with Patient: Less than 30
[2023-02-26 11:23] LABS: Glucose,Whole Blood 167 mg/dL (70-110)
[2023-02-26] MEDS: HYDROcodone/APAP 7.5-325MG 1 EACH TAB PO PRN ×2 (11:42→18:54)
--- NOTE | 2023-02-26 12:39 | PN ---
PROGRESS NOTE SUBJECTIVE: An 82-year-old white male, diabetes medicine, hypertension medicine, COPD, status post cervical surgery. OBJECTIVE: VITAL SIGNS: Temp 99, blood pressure 115/69, saturating 95% on 2 L. CARDIOVASCULAR: S1, S2. LUNGS: Decreased breath sounds. HEMATOLOGY: Negative Homans. PSYCH: Fair mood and affect. ASSESSMENT: Status post lumbar spinal surgery. The patient appears to be doing better. He had a CT of the lumbar spine without contrast after surgery, shows L5-S1 fusion, small hemorrhage 1 cm in epidural space. Recommend MRI of the lumbar spine for better decision. Dr. Summers saw this, had a lumbar spine x-ray. Progress note states that he is resting good today with no signs or bladder trouble. Pain control with [place]. Lyrica has been restarted. Continue getting stool softeners. Continue Flomax. Hematoma, unclear what we are going to do about it at this time. Continue PT, O2, and discharge planning. MMODL / IJN: [id number] /
[2023-02-26 16:13] LABS: Glucose,Whole Blood 316 mg/dL (70-110)
[2023-02-26] MEDS: ASPIRIN 81 MG PO SCH (17:48)
[2023-02-26] MEDS: MAG HYDROX/AL HYDROX/SIMETH 30 ML CUP PO PRN ×2 (17:48→17:51)
[2023-02-26] MEDS: lisinopriL 5 MG TAB PO SCH (17:48)
[2023-02-26] MEDS: MAGNESIUM HYDROXIDE 2,400 MG/30 ML CUP PO SCH (17:53)
[2023-02-26 20:51] LABS: Glucose,Whole Blood 179 mg/dL (70-110)
[2023-02-26] MEDS: PANTOPRAZOLE 40 MG TABLET PO SCH (21:27)
[2023-02-26] MEDS: FINASTERIDE 5 MG TAB PO SCH (21:27)
[2023-02-26] MEDS: HYDROmorphone 0.5 MG/0.5 ML SYRINGE IVP PRN (21:28)
[2023-02-26] MEDS: MONTELUKAST 10 MG TAB PO SCH (21:28)
[2023-02-26] MEDS: LORATADINE 10 MG TAB PO SCH (21:28)
[2023-02-26] MEDS: ATORVASTATIN 20 MG TAB PO SCH (21:28)
[2023-02-26] MEDS: HEPARIN SODIUM,PORCINE 5,000 UNIT/ML 1 ML VIAL SQ SCH (21:28)
[2023-02-27] MEDS: CYCLOBENZAPRINE 5 MG TAB PO PRN (05:25)
[2023-02-27] MEDS: HYDROcodone/APAP 7.5-325MG 1 EACH TAB PO PRN ×4 (05:25→20:28)
[2023-02-27] MEDS: ACETAMINOPHEN TAB 325 MG TAB PO SCH ×3 (05:27→17:13)
[2023-02-27] MEDS: LACTATED RINGERS 1,000 ML IV SCH (06:10)
[2023-02-27] MEDS: MAGNESIUM HYDROXIDE 2,400 MG/30 ML CUP PO SCH (08:22)
[2023-02-27] MEDS: SENNOSIDES-DOCUSATE SODIUM 1 EACH TAB PO SCH (08:25)
[2023-02-27] MEDS: CYANOCOBALAMIN 500 MCG TAB PO SCH (08:25)
[2023-02-27] MEDS: METOPROLOL TARTRATE 25 MG TAB PO SCH ×2 (08:25→20:27)
[2023-02-27] MEDS: TAMSULOSIN 0.4 MG CAP.ER.24H PO SCH (08:25)
[2023-02-27] MEDS: CHOLECALCIFEROL 25 MCG (1000 IU) TABLET PO SCH ×2 (08:25→20:29)
[2023-02-27] MEDS: PREGABALIN 75 MG CAP PO SCH ×2 (08:25→20:27)
[2023-02-27] MEDS: HEPARIN SODIUM,PORCINE 5,000 UNIT/ML 1 ML VIAL SQ SCH ×2 (08:26→20:27)
--- NOTE | 2023-02-27 09:06 | P.PN ---
Subjective Progress Note Date: 02/27/23 Principal diagnosis: 1. L5-S1 grade 1 spondylolisthesis, unstable 2.L4-S1 spondylosis 3. Right lower extremity weakness and radiculopathy 4. Low back pain Patient seen and examined this morning. Patient is resting comfortably in bed. Patient does report that he attempted to work with physical therapy yesterday and was unable to do so due to pain and bilateral lower extremity weakness. Spouse states that patient has been in bed since this attempt. Patient was assisted to the bedside 1 assist with a walker to sit in chair for breakfast. Patient tolerated activity well. He does have a short stepping gait with shuffling. Patient may benefit from subacute rehab at discharge. Spouse verbalizes understanding. Surgical dressings to the lumbar spine are clean dry and intact. Patient is urinating without difficulty. He does state that he is passing gas, no current bowel movement. No acute concerns. Objective - Vital Signs Vital signs: Vital Signs Temp 98.8 F 02/27/23 01:31 Pulse 66 02/27/23 01:31 Resp 17 02/27/23 01:31 BP 98/63 02/27/23 01:31 Pulse Ox 91 L 02/27/23 01:31 FiO2 Intake & Output 02/26/23 02/27/23 02/27/23 18:59 06:59 18:59 Output Total 1200 Balance -1200 Output: Urine 1200 Other: Voiding Method Indwelling Catheter Urinal # Voids 5 4 # Bowel Movements 0 - Exam Physical Examination General: The patient is awake and alert, in no acute distress Skin: Skin is warm and dry with no obvious rashes or lesions. Surgical incisions to the lumbar spine, dressings are clean dry and intact. Eye: Pupils are equal, round and reactive to light, extra-ocular movements are intact; there is normal conjunctiva bilaterally. Neck: The neck is supple, there is no tenderness and ROM intact. Cardiovascular: There is a regular rate and rhythm. No murmur, rub or gallop is appreciated. Respiratory: Lungs are clear to auscultation, respirations are non-labored, breath sounds are equal. Gastrointestinal: Soft, non-distended, non-tender abdomen. Back: There is mild tenderness to palpation in the paralumbar region. There is no obvious deformity . Musculoskeletal: ROM limited secondary to pain and stiffness from surgical procedure. Muscle strength in all major muscle groups of bilateral upper extremities 5/5, bilateral lower extremities 4-/5. Neurological: CN 2-12 intact. There are no obvious motor or sensory deficits. Movement and coordination equal and intact. Sensory exam to light touch intact C5-T1 and intact from L2-S1. Reflexes 2/4 in bilateral upper and lower extre mities. Negative Hoffmans, babinski, and clonus signs. Psychiatric: Cooperative, appropriate mood & affect, normal judgment. 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 L5-S1 grade 1 spondylolisthesis, unstable 2.L4-S1 spondylosis 3. Right lower extremity weakness and radiculopathy 4. Low back pain Plan: -Appreciate [employer] consultant and team management. -Activity: Ambulate QID, OOB all meals, up and about, limit lifting bending twisting to less than 5 lbs. Use walker or cane if needed for stability. -Daily PT/OT, increase ambulation strength and balance. -Pain control: Adequate at this time -Meds: reviewed -GI ppx: senna, Miralax -DVT PPX: Heparin -Hygiene: Shower today. Maintain dressing clean and dry. Meticulous cleaning after BMs away from the incision site -Encourage IS 10x/hr -Dispo: Anticipate discharge in the next [address] [facility] when bed available. *I reviewed and discussed this case with my attending Dr. Summers, whom has reviewed this chart and films and is in agreement with assessment and plan of care as outlined above. I have personally seen and examined the patient, performed the documentation and the assessment and plan as written. Number of minutes spent on the visit: 30m
[2023-02-27] MEDS: CYCLOBENZAPRINE 5 MG TAB PO SCH ×2 (12:01→20:27)
[2023-02-27 13:23] LABS: Basophils # (A) 0.01 X 10*3/uL (0.00-0.10); Basophils % (A) 0.1 %; Eosinophils # (A) 0.17 X 10*3/uL (0.04-0.35); HCT 38.2 % (39.6-50.0); HGB 12.4 g/dL (13.0-17.0); Lymphocytes # (A) 1.51 X 10*3/uL (0.90-5.00); Lymphocytes % (A) 17.5 %; MCH 28.6 pg (27.0-32.0); MCHC 32.5 g/dL (32.0-37.0); Mean Platelet Volume 10.9 FL (9.5-12.2); Monocytes # (A) 0.69 X 10*3/uL (0.20-1.00); NRBC Per 100 WBC 0 X 10*3/uL (0.00-0.01); Neutrophils # (A) 6.22 X 10*3/uL (1.80-7.70); Neutrophils % (A) 71.9 %; Platelet Count 109 X 10*3/uL (140-440); RBC 4.34 X 10*6/uL (4.40-5.60); RDW 13.2 % (11.5-14.5); WBC 8.64 X 10*3/uL (4.50-10.00)
[2023-02-27 13:53] LABS: ALT 15 U/L (10-49); AST 26 U/L (14-35); Albumin 3.5 g/dL (3.8-4.9); Albumin/Globulin Ratio 1.94 Ratio (1.60-3.17); Alkaline Phosphatase 49 U/L (41-126); Blood Urea Nitrogen 11.6 mg/dL (9.0-27.0); Calcium 8.3 mg/dL (8.7-10.3); Carbon Dioxide 23.9 mmol/L (21.6-31.8); Chloride 103 mmol/L (96-109); Globulin 1.8 g/dL (1.6-3.3); Glucose 142 mg/dL (70-110); Potassium 3.6 mmol/L (3.5-5.5); Sodium 139 mmol/L (135-145); Total Protein 5.3 g/dL (6.2-8.2)
[2023-02-27] MEDS: lisinopriL 5 MG TAB PO SCH (16:36)
[2023-02-27] MEDS: ASPIRIN 81 MG PO SCH (16:36)
[2023-02-27] MEDS: FINASTERIDE 5 MG TAB PO SCH (20:27)
[2023-02-27] MEDS: MONTELUKAST 10 MG TAB PO SCH (20:27)
[2023-02-27] MEDS: ATORVASTATIN 20 MG TAB PO SCH (20:27)
[2023-02-27] MEDS: LORATADINE 10 MG TAB PO SCH (20:27)
[2023-02-27] MEDS: PANTOPRAZOLE 40 MG TABLET PO SCH (20:29)
[2023-02-28] MEDS: ACETAMINOPHEN TAB 325 MG TAB PO SCH ×5 (00:52→23:54)
[2023-02-28] MEDS: HYDROcodone/APAP 7.5-325MG 1 EACH TAB PO PRN (06:54)
[2023-02-28] MEDS: LACTATED RINGERS 1,000 ML IV SCH (08:50)
--- NOTE | 2023-02-28 09:06 | P.PN ---
Subjective Progress Note Date: 02/28/23 Principal diagnosis: 1. L5-S1 grade 1 spondylolisthesis, unstable 2.L4-S1 spondylosis 3. Right lower extremity weakness and radiculopathy 4. Low back pain Patient seen and examined this morning. Patient is resting comfortably in bed. Patient reports he did work with physical therapy yesterday and had ambulated to the door with walker. He states he did tolerate activity well. It is documented that patient is a x2 assist. Surgical incision to the posterior lumbar spine is clean dry and intact. He does state that he is passing gas, no current bowel movement. Patient is cleared from orthopedic standpoint for discharge to subacute rehab when bed available. Objective - Vital Signs Vital signs: Vital Signs Temp 98.9 F 02/28/23 02:07 Pulse 66 02/28/23 02:07 Resp 18 02/28/23 02:07 BP 108/60 02/28/23 02:07 Pulse Ox 93 L 02/28/23 02:07 FiO2 Intake & Output 02/27/23 02/28/23 02/28/23 18:59 06:59 18:59 Output Total 250 Balance -250 Output: Urine 250 Other: # Bowel Movements 0 - Exam Physical Examination General: The patient is awake and alert, in no acute distress Skin: Skin is warm and dry with no obvious rashes or lesions. Surgical incisions to the lumbar spine, dressings are clean dry and intact. Eye: Pupils are equal, round and reactive to light, extra-ocular movements are intact; there is normal conjunctiva bilaterally. Neck: The neck is supple, there is no tenderness and ROM intact. Cardiovascular: There is a regular rate and rhythm. No murmur, rub or gallop is appreciated. Respiratory: Respirations are non-labored, breath sounds are equal. Gastrointestinal: Soft, non-distended, non-tender abdomen. Back: There is mild tenderness to palpation in the paralumbar region. There is no obvious deformity . Musculoskeletal: ROM limited secondary to pain and stiffness from surgical procedure. Muscle strength in all major muscle groups of bilateral upper extremities 5/5, bilateral lower extremities 4-/5. Neurological: CN 2-12 intact. There are no obvious motor or sensory deficits. Movement and coordination equal and intact. Sensory exam to light touch intact C5-T1 and intact from L2-S1. Reflexes 2/4 in bilateral upper and lower extremities. Negative Hoffmans, babinski, and clonus signs. Psychiatric: Cooperative, appropriate mood & affect, normal judgment. - Labs CBC & Chem 7: 02/27/23 07:02 02/27/23 07:02 Labs: Abnormal Lab Results - Last 24 Hours (Table) 02/27/23 02/27/23 Range/Units 07:02 07:02 RBC 4.34 L (4.40-5.60) X 10*6/uL Hgb 12.4 L (13.0-17.0) g/dL Hct 38.2 L (39.6-50.0) % Plt Count 109 L (140-440) X 10*3/uL Anion Gap 12.10 H (4.00-12.00) mmol/L BUN/Creatinine Ratio 11.60 L (12.00-20.00) Ratio Glucose 142 H (70-110) mg/dL Calcium 8.3 L (8.7-10.3) mg/dL Total Protein 5.3 L (6.2-8.2) g/dL Albumin 3.5 L (3.8-4.9) g/dL Assessment and Plan Assessment: Postop day 3: L4-S1 minimally invasive TLIF 1. L5-S1 grade 1 spondylolisthesis, unstable 2.L4-S1 spondylosis 3. Right lower extremity weakness and radiculopathy 4. Low back pain Plan: -Appreciate commercial sales consultant and team management. -Activity: Ambulate QID, OOB all meals, up and about, limit lifting bending twisting to less than 5 lbs. Use walker or cane if needed for stability. -Daily PT/OT, increase ambulation strength and balance. -Pain control: Adequate at this time -Meds: reviewed -GI ppx: senna, Miralax -DVT PPX: Heparin -Hygiene: Shower today. Maintain dressing clean and dry. Meticulous cleaning after BMs away from the incision site -Encourage IS 10x/hr -Dispo: Patient is cleared from orthopedic standpoint for discharge to [facility] when bed available. *I reviewed and discussed this case with my attending Dr. Summers, whom has reviewed this chart and films and is in agreement with assessment and plan of care as outlined above. I have personally seen and examined the patient, performed the documentation and the assessment and plan as written. Number of minutes spent on the visit: 30m
[2023-02-28] MEDS: HEPARIN SODIUM,PORCINE 5,000 UNIT/ML 1 ML VIAL SQ SCH ×2 (10:13→22:49)
[2023-02-28] MEDS: CHOLECALCIFEROL 25 MCG (1000 IU) TABLET PO SCH ×2 (10:14→22:49)
[2023-02-28] MEDS: PREGABALIN 75 MG CAP PO SCH ×2 (10:14→23:05)
[2023-02-28] MEDS: CYANOCOBALAMIN 500 MCG TAB PO SCH (10:14)
[2023-02-28] MEDS: MAGNESIUM HYDROXIDE 2,400 MG/30 ML CUP PO SCH (10:15)
[2023-02-28] MEDS: CYCLOBENZAPRINE 5 MG TAB PO SCH ×2 (10:15→23:04)
[2023-02-28] MEDS: METOPROLOL TARTRATE 25 MG TAB PO SCH ×2 (10:15→22:49)
[2023-02-28] MEDS: TAMSULOSIN 0.4 MG CAP.ER.24H PO SCH (10:16)
[2023-02-28] MEDS: SENNOSIDES-DOCUSATE SODIUM 1 EACH TAB PO SCH (11:10)
[2023-02-28] MEDS: lisinopriL 5 MG TAB PO SCH (16:56)
[2023-02-28] MEDS: ASPIRIN 81 MG PO SCH (16:56)
[2023-02-28] MEDS: LORATADINE 10 MG TAB PO SCH (22:48)
[2023-02-28] MEDS: MONTELUKAST 10 MG TAB PO SCH (22:49)
[2023-02-28] MEDS: FINASTERIDE 5 MG TAB PO SCH (22:49)
[2023-02-28] MEDS: ATORVASTATIN 20 MG TAB PO SCH (22:49)
[2023-02-28] MEDS: PANTOPRAZOLE 40 MG TABLET PO SCH (23:05)
[2023-03-01] MEDS: HYDROcodone/APAP 7.5-325MG 1 EACH TAB PO PRN ×2 (01:03→10:18)
[2023-03-01] MEDS: ACETAMINOPHEN TAB 325 MG TAB PO SCH ×2 (05:11→12:52)
[2023-03-01 06:30] LABS: Glucose,Whole Blood 148 mg/dL (70-110)
[2023-03-01] MEDS: LACTATED RINGERS 1,000 ML IV SCH (07:44)
--- NOTE | 2023-03-01 07:54 | P.DS ---
Providers Date of admission: 02/26/23 14:03 Expected date of discharge: 03/01/23 Attending physician: Keven Summers DO Consults: 02/25/23 13:57 Consult Physician Routine Consulting Provider: Bob Auguste Reason/Comments: medical management Do you want consulting provider notified?: Yes Primary care physician: Bob Auguste [facility] Course: Date of admission: 02/25/2023 Date of discharge: 03/01/2023 Admission diagnosis: Status post minimally invasive L5-S1 TLIF Discharge diagnosis: Same Attending physician: Dr. Summers Surgical procedures: Minimally invasive L5-S1 transforaminal lumbar interbody fusion Brief history: Patient is a 82-year-old male with a history of progressive low back pain, . lower extremity radiculopathy and weakness, multilevel lumbar spondylosis with grade 12 L5-S1 anterior spondylolisthesis. At this point patient has failed conservative treatment measures and has opted to proceed with a elective minimally invasive L5-S1 transforaminal lumbar interbody fusion Hospital course: Details of patient's surgery can be found in operative report. Patient tolerated the procedure well and was subsequently transported to orthopedic floor. Patient's orthopeidc and medical care was provided daily. Patient had daily laboratory tests performed for evaluation of overall blood counts. Patient had daily physical therapy to include strengthening range of motion as well as education with walker ambulation. Patient was treated with heparin for their postoperative DVT prophylaxis during their inpatient stay. Patient was noted to have a relatively uneventful postoperative course. Patient reported satisfactory pain control with oral pain medications by postoperative day 1. Patient showed satisfactory progress with physical therapy. Patient moved steadily through the program and had no difficulty meeting the goals by postoperative day 4. Given patient's otherwise satisfactory course and having met physical therapy goals, plan is to discharge patient subcute rehab on postoperative day 4. Discharge condition/disposition: Patient will be discharged subacute rehab stable condition. Discharge medications: Instructions are given on resumption of patient's normal daily medications per primary care recommendation, in addition patient will be prescribed [place] 7.5 mg/325 mg, Flexeril 5 mg, Lyrica 150 mg, senna S, Duricef 500 mg . Spine Discharge and Recovery Instructions Leave your dressing in place for a total of 5 days post operatively. Then you may remove your dressing and leave open to air. Keep the area clean and if not able to keep area clean, then cover with sterile gauze and tape. Showering: You may shower 3 days after your procedure allowing soap and water to run over incision. Do not scrub. Do not soak. Blot dry. Follow up: Please confirm a follow up appointment with your surgeon 3 weeks post operatively. Please make an appointment to follow up with your PCP in 1-2 weeks after surgery for evaluation 3 phase, 3-week plan POST OP WEEKS 1-3 1. Lifting/carrying/pushing/pulling limited to less than 5 pounds. 2. Do not sit for longer than 15 minutes at one time. Get up and walk around. Prolonged sitting is NOT advised. If you lay down, see if you can tolerate laying down on you front (belly side) 3. Walk for periods of 15 minutes = 1 mile but no longer; do it multiple times times each day. 4. Ice your low back after activity. POST OP WEEKS 3-6 1. Lifting limited to less than 20 pounds. 2. Do not sit for longer than 30 minutes at a time. Frequently change positions. Use a sit-to stand workstation or take frequent breaks from sitting if you have returned to work. 3. Walk for 30 minutes each day. If possible, do these three or more times a day POST OP WEEKS 6+ At your 6-week appointment we will give you a physical therapy referral to focus on a core stabilization and strengthening program. You should also work on leg & buttock strengthening, hamstring & quadriceps stretching, and continue a low impact aerobic activity program such as swimming, walking, or riding a stationary bicycle. During the initial 6 weeks after your surgery, you are at the highest risk of re-injuring your spine. You should generally avoid BLTs (bending, lifting and twisting combination motions) and follow the above guidelines to reduce the chance of reinjury. You can anticipate post op appointments in our office at approximately 3 weeks and 6 weeks after your surgery. INCISION CARE: If your incision is not draining you do NOT need to cover it with a dressing. Keep your incision clean, dry and intact. In most cases, we apply skin glue, fabio or sutures to the incision at the time of surgery. This will be like a crust or have the appearance of a scab and will fall off in time on its own. The stitches or fabio need to be removed at 3 weeks post op appointment. You may begin to shower 3 days after surgery (this allows the glue to boykin well). However, please avoid scrubbing the incision site or peeling off any of the skin glue. This will ensure optimal healing of your incision. Also, during this time avoid soaking the incision area in water - this includes swimming pools, hot tubs or baths. No ointments, lotions or oils on the incision until your surgeon allows. Leave fabio, sutures or glue in place. Neurological dysfunction that comes on suddenly can also be a sign of a stroke. Below some common symptoms of a stroke are listed: B - balance difficulty such as sudden onset walking or leaning to one side - NEW E - eye problem such as sudden double vision or trouble seeing on one side - NEW F - Facial weakness or numbness on one side - NEW A - Arm or leg weakness or numbness on one side - NEW S - Slurred speech or difficulty with word finding - NEW T - Time is BRAIN! Call 911 as soon as you recognize these symptoms Diet: Consume a regular diet rich in vegetables and lean protein such as chicken or fish. You should consume in a ratio of approximately 20% fats|40% carbohydrates|40%protein. Vegetables, sweet potatoes, brown rice or quinoa are examples of good carbohydrates. Chips, white bread, cookies and sweets/sugar are examples of bad carbohydrates. Limit your bad carbs, go wild with good carbs. "Life's Simple 7" Guidelines as per [place] [employer] These will help you reclaim your life after surgery and lead burner helper in your recovery, keeping in mind your restrictions. (1) Get Active. Physical activity can help people lose weight, control high blood pressure and cholesterol, feel emotionally better, and sleep better. (2) Control Cholesterol. Avoid a diet high in saturated fat, trans fat, & cholesterol. Limit whole milk & cream, ice cream, butter, egg yolks, processed meats (like sausage and hot dogs), and fatty meats. Choose healthy foods that are low in saturated fat, trans fat and cholesterol which include: Fruits and vegetables, fiber rich grain products (like whole grain pasta and brown rice), lean meat such as chicken, fish, nuts, seeds, and legumes. (3) Eat Better. Eat small portions. Shop at the grocery with a list and do not stray from it. Tips for a healthy diet include: Limit sodium intake to less than 1500mg daily, avoid prepackaged, processed, and fast foods, choose a diet rich in fruits, vegetables, and whole grain, high fiber foods, and limit saturated & cholesterol in your diet. (4) Manage Blood Pressure. If you have high blood pressure, you should have a cuff at home so that you can check your blood pressure regularly. Be sure you have a good cuff. An arm one is generally better than a wrist one. Bring the cuff to a doctor's appointment to validate that the measurements that your cuff are taking are accurate. Take your blood pressure twice daily when you are sitting down and relaxing. Record the numbers in a log and bring this log with you to your doctors' appointments. (5) Lose Weight if your BMI is above 25. A healthy BMI is between 19-25. To calculate Your BMI, you may use a Standard BMI Calculator on the NIH BMI website: <www.nhlbi.nih.gov/guidelines/obesity/BMI/bmicalc.htm>. Weigh oneself daily. If you are overweight, set a goal to lose weight. A pound a week loss if needed is a good target. (6) Reduce Blood Sugar. Limit foods and liquids with "added sugars." (Added sugars include sucrose, fructose, glucose, maltose, dextrose, high fructose corn syrup, corn syrup, concentrated fruit juice and honey). (7) Stop Smoking. If you smoke, quitting smoking is one of the best things that you can do for your health. Smoking increases your risk of heart attack, stroke, and peripheral vascular disease, which is a build-up of plaque in your arteries. Please discard all the cigarettes and lighters in your house. Have a plan for what you will do when you have the urge to smoke. Direct and second- hand smoke shortens your life as well as the lives of your family, friends and others around you. For your health and the health of those around you, please consider quitting! Proper Bending Body Mechanics: Maintain a wide stance with one foot slightly in front of the other. Keep your back straight. Bend utilizing the strength in your hips and knees. Do not bend at the waist. Maintain the lifted object at your waist-level close to your body. Avoid lifting weight that causes immediately pain or pain anywhere in the body afterwards. Smoking/Nicotine If there was ever one thing that you could do to increase your overall health, decrease your risk of cardiovascular problems by about 39% the second you make the choice, it is to STOP SMOKING. Your body's most instant gratification is the second you stop smoking. We have all heard the studies, read the articles but it is true, smoking is extremely bad for your overall health, and moreover it is detrimental to your bone health. Nicotine, IN ANY FORM, kills bone cells, prevents your body from healing fractures, and significantly prolongs healing after surgery. In spine surgery specifically, it increases your risk of not healing your bones to create a fusion and increases your risk of having a revision surgery due to this up to 60%. I know it is hard. I know it feels impossible. But there are ways. Take control of your life. We are here to help you through it. And when you are ready, ask us and we can direct you to help if you desire. Use the START Plan to Quit Smoking (please visit the [employer].org website listed below for more information): S = Set a quit date. Choose a date within the next 2 weeks, so you have enough time to prepare without losing your motivation to quit. If you mainly smoke at work, quit on the weekend, so you have a few days to adjust to the change. T = Tell family, friends, and co-workers that you plan to quit. Let your friends and family in on your plan to quit smoking and tell them you need their support and encouragement to stop. Look for a quit handy who wants to stop smoking as well. You can help each other get through the rough times. A = Anticipate and plan for the challenges you'll face while quitting. Most people who begin smoking again do so within the first 3 months. You can help yourself make it through by preparing ahead for common challenges, such as nicotine withdrawal and cigarette cravings. R = Remove cigarettes and other tobacco products from your home, car, and work. Throw away all your cigarettes (no emergency pack!), lighters, ashtrays, and matches. Wash your clothes and freshen up anything that smells like smoke. Shampoo your car, clean your drapes and carpet, and steam your furniture. T = Talk to your doctor about getting help to quit. Your doctor can prescribe medication to help with withdrawal and suggest other alternatives. If you can't see a doctor, you can get many products over the counter at your local pharmacy or grocery store, including the nicotine patch, nicotine lozenges, and nicotine gum. Resources for Quitting Smoking: <https://www.[place].gov/documents/[facility]/Quit_Tobacco_Resources_for_patients_313 480_7.pdf> Supplementation: Take recommended dosages of Vitamin D and Calcium to help fortify your bones and help them to heal. See your health maintenance packet for dosages and recommended levels. DVT/VTE prophylaxis: You will be given compression stockings from the hospital. Wear these daily for the first two weeks after surgery. You may take them off at night. You may be prescribed a medication to help thin your blood. Take this as directed. If you are not prescribed this medication, early and frequent ambulation has been shown to be the best prophylaxis to deep vein thrombosis and sequelae related to this event. Patient Condition at Discharge: Good Plan - Discharge Summary Discharge Rx Participant: Yes New Discharge Prescriptions: New cefaDROXiL [Duricef] 500 mg PO Q12HR #10 cap Cyclobenzaprine [Flexeril] 5 mg PO BID #60 tablet Pregabalin [Lyrica] 150 mg PO BID #60 cap Sennosides/Docusate Sodium [Senna Plus 8.6-50 mg Softgel] 1 each PO DAILY PRN #20 capsule PRN Reason: Constipation HYDROcodone/APAP 7.5-325MG [Odessa 7.5-325] 1 tab PO Q4-6H PRN #42 tab PRN Reason: Pain No Action Tamsulosin [Flomax] 0.4 mg PO QAM Pregabalin 150 mg PO BID Montelukast [Singulair] 10 mg PO HS Rosuvastatin [Crestor] 10 mg PO HS [place]-3/Dha/Epa/Fish Oil [Fish Oil 1,000 mg Softgel] 1 each PO BID Metoprolol Tartrate 25 mg PO BID Empagliflozin [Jardiance] 25 mg PO QAM Vitamin B-12 (Unknown Dose) 1 tab PO DAILY lisinopriL [Zestril] 5 mg PO W/SUPPER sitaGLIPtin PHOS/metFORMIN HCL [Janumet 50-1,000 mg Tablet] 1 each PO W/SUPPER Semaglutide [Ozempic] 0.25 mg SQ MERCEDES Omeprazole [PriLOSEC] 20 mg PO HS Magnesium Oxide(Unknown Dose) 1 tab PO W/SUPPER Loratadine 10 mg PO HS Finasteride [Proscar] 5 mg PO HS Celecoxib 200 mg PO DIRECTED Aspirin [Adult Low Dose Aspirin EC] 81 mg PO W/SUPPER Vitamin D (Unknown Dose) 1 tab PO BID Domperidone 10 mg PO TID Discharge Medication List Aspirin [Adult Low Dose Aspirin EC] 81 mg PO W/SUPPER 02/20/23 [History] Celecoxib 200 mg PO DIRECTED 02/20/23 [History] Domperidone 10 mg PO TID 02/20/23 [History] Empagliflozin [Jardiance] 25 mg PO QAM 02/20/23 [History] Finasteride [Proscar] 5 mg PO HS 02/20/23 [History] Loratadine 10 mg PO HS 02/20/23 [History] Magnesium Oxide(Unknown Dose) 1 tab PO W/SUPPER 02/20/23 [History] Metoprolol Tartrate 25 mg PO BID 02/20/23 [History] Montelukast [Singulair] 10 mg PO HS 02/20/23 [History] [place]-3/Dha/Epa/Fish Oil [Fish Oil 1,000 mg Softgel] 1 each PO BID 02/20/23 [History] Omeprazole [PriLOSEC] 20 mg PO HS 02/20/23 [History] Pregabalin 150 mg PO BID 02/20/23 [History] Rosuvastatin [Crestor] 10 mg PO HS 02/20/23 [History] Semaglutide [Ozempic] 0.25 mg SQ MERCEDES 02/20/23 [History] Tamsulosin [Flomax] 0.4 mg PO QAM 02/20/23 [History] Vitamin B-12 (Unknown Dose) 1 tab PO DAILY 02/20/23 [History] Vitamin D (Unknown Dose) 1 tab PO BID 02/20/23 [History] lisinopriL [Zestril] 5 mg PO W/SUPPER 02/20/23 [History] sitaGLIPtin PHOS/metFORMIN HCL [Janumet 50-1,000 mg Tablet] 1 each PO W/SUPPER 02/20/23 [History] Cyclobenzaprine [Flexeril] 5 mg PO BID #60 tablet 02/28/23 [Rx] HYDROcodone/APAP 7.5-325MG [[place] 7.5-325] 1 tab PO Q4-6H PRN #42 tab 02/28/23 [Rx] Pregabalin [Lyrica] 150 mg PO BID #60 cap 02/28/23 [Rx] Sennosides/Docusate Sodium [Senna Plus 8.6-50 mg Softgel] 1 each PO DAILY PRN #20 capsule 02/28/23 [Rx] cefaDROXiL [Duricef] 500 mg PO Q12HR #10 cap 02/28/23 [Rx] Follow up Appointment(s)/Referral(s): Bob Auguste MD [Primary Care Provider] - 1 Week Keven Summers DO [Doctor of Osteopathic Medicine] - 2 Weeks Andreea Waters [NON-STAFF] - As Needed (LSO brace) Activity/Diet/Wound Care/Special Instructions: Patient can discharge to [facility] rehab on Friday after 2pm Spine Discharge and Recovery Instructions Medications: See medication list All medication refills should be obtained through your primary care doctor or your clinic spine surgeon. Please discuss prescription refills at your follow up appointment. Do not call the hospital for medication refills. Activity: Encourage ambulation with assist of walker, Up and about 6-8x daily PT/OT daily work on balance, strength and mobility Up in chair with all meals Shower daily Brace: Use brace when up and about, do not wear in bed or shower Dressing: Leave your dressing in place for a total of 3 days post operatively. Then you may remove your dressing and leave open to air. Keep the area clean and if not able to keep area clean, then cover with sterile gauze and tape. Showering: You may shower 3 days after your procedure allowing soap and water to run over incision. Do not scrub. Do not soak. Blot dry. Follow up: Please confirm a follow up appointment with your surgeon 2 weeks post operatively. Please make an appointment to follow up with your PCP in 1-2 weeks after surgery for evaluation 3 phase, 3-week plan POST OP WEEKS 1-3 1. Lifting/carrying/pushing/pulling limited to less than 5 pounds. 2. Do not sit for longer than 15 minutes at one time. Get up and walk around. Prolonged sitting is NOT advised. If you lay down, see if you can tolerate laying down on you front (belly side) 3. Walk for periods of 15 minutes = 1 mile but no longer; do it multiple times times each day. 4. Ice your low back after activity. POST OP WEEKS 3-6 1. Lifting limited to less than 20 pounds. 2. Do not sit for longer than 30 minutes at a time. Frequently change positions. Use a sit-to stand workstation or take frequent breaks from sitting if you have returned to work. 3. Walk for 30 minutes each day. If possible, do these three or more times a day POST OP WEEKS 6+ At your 6-week appointment we will give you a physical therapy referral to focus on a core stabilization and strengthening program. You should also work on leg & buttock strengthening, hamstring & quadriceps stretching, and continue a low impact aerobic activity program such as swimming, walking, or riding a stationary bicycle. During the initial 6 weeks after your surgery, you are at the highest risk of re-injuring your spine. You should generally avoid BLTs (bending, lifting and twisting combination motions) and follow the above guidelines to reduce the chance of reinjury. You can anticipate post op appointments in our office at approximately 3 weeks and 6 weeks after your surgery. INCISION CARE: If your incision is not draining you do NOT need to cover it with a dressing. Keep your incision clean, dry and intact. In most cases, we apply skin glue, fabio or sutures to the incision at the time of surgery. This will be like a crust or have the appearance of a scab and will fall off in time on its own. The stitches or fabio need to be removed at 3 weeks post op appointment. You may begin to shower 3 days after surgery (this allows the glue to boykin well). However, please avoid scrubbing the incision site or peeling off any of the skin glue. This will ensure optimal healing of your incision. Also, during this time avoid soaking the incision area in water - this includes swimming pools, hot tubs or baths. No ointments, lotions or oils on the incision until your surgeon allows. Leave fabio, sutures or glue in place. Neurological dysfunction that comes on suddenly can also be a sign of a stroke. Below some common symptoms of a stroke are listed: B - balance difficulty such as sudden onset walking or leaning to one side - NEW E - eye problem such as sudden double vision or trouble seeing on one side - NEW F - Facial weakness or numbness on one side - NEW A - Arm or leg weakness or numbness on one side - NEW S - Slurred speech or difficulty with word finding - NEW T - Time is BRAIN! Call 911 as soon as you recognize these symptoms Diet: Consume a regular diet rich in vegetables and lean protein such as chicken or fish. You should consume in a ratio of approximately 20% fats|40% carbohydrates|40%protein. Vegetables, sweet potatoes, brown rice or quinoa are examples of good carbohydrates. Chips, white bread, cookies and sweets/sugar are examples of bad carbohydrates. Limit your bad carbs, go wild with good carbs. "Life's Simple 7" Guidelines as per [place] [employer] These will help you reclaim your life after surgery and lead burner helper in your recovery, keeping in mind your restrictions. (1) Get Active. Physical activity can help people lose weight, control high blood pressure and cholesterol, feel emotionally better, and sleep better. (2) Control Cholesterol. Avoid a diet high in saturated fat, trans fat, & cholesterol. Limit whole milk & cream, ice cream, butter, egg yolks, processed meats (like sausage and hot dogs), and fatty meats. Choose healthy foods that are low in saturated fat, trans fat and cholesterol which include: Fruits and vegetables, fiber rich grain products (like whole grain pasta and brown rice), lean meat such as chicken, fish, nuts, seeds, and legumes. (3) Eat Better. Eat small portions. Shop at the grocery with a list and do not stray from it. Tips for a healthy diet include: Limit sodium intake to less than 1500mg daily, avoid prepackaged, processed, and fast foods, choose a diet rich in fruits, vegetables, and whole grain, high fiber foods, and limit saturated & cholesterol in your diet. (4) Manage Blood Pressure. If you have high blood pressure, you should have a cuff at home so that you can check your blood pressure regularly. Be sure you have a good cuff. An arm one is generally better than a wrist one. Bring the cuff to a doctor's appointment to validate that the measurements that your cuff are taking are accurate. Take your blood pressure twice daily when you are sitting down and relaxing. Record the numbers in a log and bring this log with you to your doctors' appointments. (5) Lose Weight if your BMI is above 25. A healthy BMI is between 19-25. To calculate Your BMI, you may use a Standard BMI Calculator on the NIH BMI website: <www.nhlbi.nih.gov/guidelines/obesity/BMI/bmicalc.htm>. Weigh oneself daily. If you are overweight, set a goal to lose weight. A pound a week loss if needed is a good target. (6) Reduce Blood Sugar. Limit foods and liquids with "added sugars." (Added sugars include sucrose, fructose, glucose, maltose, dextrose, high fructose corn syrup, corn syrup, concentrated fruit juice and honey). (7) Stop Smoking. If you smoke, quitting smoking is one of the best things that you can do for your health. Smoking increases your risk of heart attack, stroke, and peripheral vascular disease, which is a build-up of plaque in your arteries. Please discard all the cigarettes and lighters in your house. Have a plan for what you will do when you have the urge to smoke. Direct and second- hand smoke shortens your life as well as the lives of your family, friends and others around you. For your health and the health of those around you, please consider quitting! Proper Bending Body Mechanics: Maintain a wide stance with one foot slightly in front of the other. Keep your back straight. Bend utilizing the strength in your hips and knees. Do not bend at the waist. Maintain the lifted object at your waist-level close to your body. Avoid lifting weight that causes immediately pain or pain anywhere in the body afterwards. Smoking/Nicotine If there was ever one thing that you could do to increase your overall health, decrease your risk of cardiovascular problems by about 39% the second you make the choice, it is to STOP SMOKING. Your body's most instant gratification is the second you stop smoking. We have all heard the studies, read the articles but it is true, smoking is extremely bad for your overall health, and moreover it is detrimental to your bone health. Nicotine, IN ANY FORM, kills bone cells, prevents your body from healing fractures, and significantly prolongs healing after surgery. In spine surgery specifically, it increases your risk of not healing your bones to create a fusion and increases your risk of having a revision surgery due to this up to 60%. I know it is hard. I know it feels impossible. But there are ways. Take control of your life. We are here to help you through it. And when you are ready, ask us and we can direct you to help if you desire. Use the START Plan to Quit Smoking (please visit the [employer] website listed below for more information): S = Set a quit date. Choose a date within the next 2 weeks, so you have enough time to prepare without losing your motivation to quit. If you mainly smoke at work, quit on the weekend, so you have a few days to adjust to the change. T = Tell family, friends, and co-workers that you plan to quit. Let your friends and family in on your plan to quit smoking and tell them you need their support and encouragement to stop. Look for a quit handy who wants to stop smoking as well. You can help each other get through the rough times. A = Anticipate and plan for the challenges you'll face while quitting. Most people who begin smoking again do so within the first 3 months. You can help yourself make it through by preparing ahead for common challenges, such as nicotine withdrawal and cigarette cravings. R = Remove cigarettes and other tobacco products from your home, car, and work. Throw away all your cigarettes (no emergency pack!), lighters, ashtrays, and matches. Wash your clothes and freshen up anything that smells like smoke. Shampoo your car, clean your drapes and carpet, and steam your furniture. T = Talk to your doctor about getting help to quit. Your doctor can prescribe medication to help with withdrawal and suggest other alternatives. If you can't see a doctor, you can get many products over the counter at your local pharmacy or grocery store, including the nicotine patch, nicotine lozenges, and nicotine gum. Resources for Quitting Smoking: <https://www.[place].gov/documents/[facility]/Quit_Tobacco_Resources_for_[place]_313480_7.pdf> Supplementation: Take recommended dosages of Vitamin D and Calcium to help fortify your bones and help them to heal. See your health maintenance packet for dosages and recommended levels. DVT/VTE prophylaxis: You will be given compression stockings from the hospital. Wear these daily for the first two weeks after surgery. You may take them off at night. You may be prescribed a medication to help thin your blood. Take this as directed. If you are not prescribed this medication, early and frequent ambulation has been shown to be the best prophylaxis to deep vein thrombosis and sequelae related to this event. Discharge Disposition: TRANSFER TO SNF/ECF
[2023-03-01 09:48] VITALS: BP 126/70; PULSE 65; RESP 18; TEMP 98.6
[2023-03-01] MEDS: MAGNESIUM HYDROXIDE 2,400 MG/30 ML CUP PO SCH (09:59)
[2023-03-01] MEDS: TAMSULOSIN 0.4 MG CAP.ER.24H PO SCH (09:59)
[2023-03-01] MEDS: METOPROLOL TARTRATE 25 MG TAB PO SCH (09:59)
[2023-03-01] MEDS: SENNOSIDES-DOCUSATE SODIUM 1 EACH TAB PO SCH (09:59)
[2023-03-01] MEDS: CHOLECALCIFEROL 25 MCG (1000 IU) TABLET PO SCH (09:59)
[2023-03-01] MEDS: CYCLOBENZAPRINE 5 MG TAB PO SCH (09:59)
[2023-03-01] MEDS: PREGABALIN 75 MG CAP PO SCH (10:00)
[2023-03-01] MEDS: CYANOCOBALAMIN 500 MCG TAB PO SCH (10:00)
[2023-03-01] MEDS: HEPARIN SODIUM,PORCINE 5,000 UNIT/ML 1 ML VIAL SQ SCH (10:00)
--- NOTE | 2023-03-01 11:33 | P.PN ---
Subjective Progress Note Date: 03/01/23 Principal diagnosis: Status post MIS L5-S1 TLIF Patient was examined today at bedside, he is resting comfortably in his hospital bed. He denies any headaches, lightheadedness, chest pain or shortness of breath. Patient notes no worsening paresthesias to the lower extremities at this time. He denies any loss of bowel function at this time. He denies any genital or peroneal numbness or tingling Objective - Vital Signs Vital signs: Vital Signs Temp 98.6 F 03/01/23 07:25 Pulse 65 03/01/23 07:25 Resp 18 03/01/23 07:25 BP 126/70 03/01/23 07:25 Pulse Ox 95 03/01/23 07:25 FiO2 Intake & Output 02/28/23 03/01/23 03/01/23 18:59 06:59 18:59 Output Total 600 Balance -600 Output: Urine 600 Other: Voiding Method Urinal Urinal # Voids 3 - Exam Gen: AOx3, NAD VSS stable at this time Integument: Bandage was changed today bedside Palpation: Mild tenderness with palpation noted to the lower lumbar spine ROM: Full range of motion in all major muscle groups of bilateral upper and lower extremities, no focal deficits appreciated Sensory Exam: Senory exam to light touch is intact C5-T1 Senosry exam to light touch is intact L2-S1 Motor: 5/5 strength appreciated in the bilateral upper extremities and shoulder elevation, shoulder abduction, elbow extension, elbow flexion, wrist extension, wrist flexion, credit intern 4/5 strength appreciated in the bilateral lower extremities with hip flexion, knee extension, knee flexion, plantar flexion, dorsiflexion, EHL, FHL Reflexes: 2/4 in all UE and LE Negative Eliot's, Babinski, clonus bilaterally Special Test: Negative straight leg raise bilaterally - Labs CBC & Chem 7: 02/27/23 07:02 02/27/23 07:02 Labs: Abnormal Lab Results - Last 24 Hours (Table) 03/01/23 Range/Units 06:28 POC Glucose (mg/dL) 148 H (70-110) mg/dL Assessment and Plan Assessment: Postoperative day 4 status post MIS 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 No bending, lifting or twisting PT/OT Encourage incentive spirometer Medical recommendations appreciated Discharge planning: Discharge to subacute rehab today Time with Patient: Less than 30
[2023-03-01 12:09] LABS: Glucose,Whole Blood 168 mg/dL (70-110)
== END 2023-03-01 14:34 | DRG 460 ==
LOC: OR 07:48 → 4SSUR 13:42 → OR 02-26 11:28 → OBSVTOIN 02-26 14:03
PROVIDERS: ADMIT Orthopaedic Surgery; ATTEND Orthopaedic Surgery
PROC: 01NB0ZZ Release Lumbar Nerve, Open Approach (ICD-10-PCS; 2023-02-25)
PROC: 01NR0ZZ Release Sacral Nerve, Open Approach (ICD-10-PCS; 2023-02-25)
PROC: 8E0WXBZ Computer Assisted Procedure of Trunk Region (ICD-10-PCS; 2023-02-25)
PROC: 0SG30AJ Fusion of Lumbosacral Joint with Interbody Fusion Device, Posterior Approach, Anterior Column, Open Approach (ICD-10-PCS; principal; 2023-02-25 10:00)
DX: M43.17 Spondylolisthesis, lumbosacral region (principal); E11.42 Type 2 diabetes mellitus with diabetic polyneuropathy; J44.9 Chronic obstructive pulmonary disease, unspecified; I10 Essential (primary) hypertension; M47.26 Other spondylosis with radiculopathy, lumbar region; M48.061 Spinal stenosis, lumbar region without neurogenic claudication; M47.27 Other spondylosis with radiculopathy, lumbosacral region; M48.07 Spinal stenosis, lumbosacral region; M51.17 Intervertebral disc disorders with radiculopathy, lumbosacral region; N40.0 Benign prostatic hyperplasia without lower urinary tract symptoms; H91.93 Unspecified hearing loss, bilateral; E78.5 Hyperlipidemia, unspecified; G47.30 Sleep apnea, unspecified; G47.9 Sleep disorder, unspecified; F17.210 Nicotine dependence, cigarettes, uncomplicated; Z79.899 Other long term (current) drug therapy; Z79.84 Long term (current) use of oral hypoglycemic drugs; Z79.85 Long-term (current) use of injectable non-insulin antidiabetic drugs; Z79.82 Long term (current) use of aspirin; Z95.1 Presence of aortocoronary bypass graft; Z97.4 Presence of external hearing-aid
CPT/HCPCS: 72100; 72131; 80053; 85025; 85610; 85730; 94760